=== PATIENT | female | born 1980 | race Caucasian/White ===

== ENCOUNTER → 2024-04-19 16:05 | Outpatient (REF) | payer OTHER, SELFPAY | LOC: RAD 16:05 | PROVIDERS: ATTENDING PHYSICIAN Family Medicine | DX: M25.511 Pain in right shoulder (principal) | CPT/HCPCS: 73030 ==

== ENCOUNTER → 2024-07-26 06:25 | Day surgery (SDC) | payer OTHER, SELFPAY | LOC: GI 06:25 | PROVIDERS: ATTENDING PHYSICIAN Internal Medicine Gastroenterology | DX: K62.1 Rectal polyp (principal); K64.8 Other hemorrhoids; R19.5 Other fecal abnormalities | CPT/HCPCS: 45380; 88305 ==

== ENCOUNTER → 2024-08-19 17:21 | Outpatient (REF) | payer OTHER, SELFPAY | LOC: WDC 17:21 | PROVIDERS: ATTENDING PHYSICIAN Family Medicine | DX: Z12.31 Encounter for screening mammogram for malignant neoplasm of breast (principal) | CPT/HCPCS: 77063; 77067 ==

== ENCOUNTER → 2025-02-03 13:50 | Outpatient (REF) | payer OTHER, SELFPAY | LOC: WDC 13:50 | PROVIDERS: ATTENDING PHYSICIAN Family Medicine | DX: R92.333 Mammographic heterogeneous density, bilateral breasts (principal) | CPT/HCPCS: 76641 ==